=== PATIENT | female | born 2000 | race Caucasian/White ===

== ENCOUNTER 2022-04-03 19:05 | Inpatient (IN) | payer OTHER, BC ==
[~2022-04-03 19:05] MED LIST: Iopamidol-370 76% 500 ML 1 ML ONE
[2022-04-03] MEDS ORDERED: Midazolam HCl 2 mg/2 ml Vial ONE (19:13)
[2022-04-03] MEDS ORDERED: Fentanyl 100 MCG/2 ML VIAL ONE (19:13)
[2022-04-03] MEDS ORDERED: CEFAZOLIN 1 GM VIAL ONE (19:18)
[2022-04-03] MEDS ORDERED: Boostrix 0.5 ML (Tdap) VIAL ONE (19:18)
[2022-04-03 19:23] LABS: #Basophils 0.1 thou/uL (0.0-0.2); #Eosinphils 0.2 thou/uL (0.0-0.7); #Lymphocytes 3.7 thou/uL (1.20-3.40); #Monocytes 0.8 thou/uL (0.11-0.59); #Neutrophils 8.1 thou/uL (1.40-6.50); %Basophils 0.7 % (0.0-1.0); %Eosinophils 1.5 % (0.0-10.0); %Lymphocytes 28.8 % (21.0-51.0); %Monocytes 6.2 % (0.0-10.0); %Neutrophils 62.9 % (42.0-75.0); Hemoglobin 13.4 g/dL (12.0-16.0); Mean Corpuscular HGB CONC 33.4 g/dL (32.0-36.0); Mean Corpuscular Hemoglobin 31.1 pg (27.0-31.0); Mean Corpuscular Volume 93.3 fL (78.0-98.0); Platelet Count 372 thou/uL (130-400); RBC Distribution Width 11.8 % (11.5-14.5); Red Blood Cell (RBC) Count 4.32 mill/uL (4.20-5.40); White Blood Cell (WBC) Count 12.8 thou/uL (4.8-10.8)
[2022-04-03] MEDS ORDERED: Fentanyl CADD 100 ML IV SCH (19:30)
[2022-04-03 19:34] LABS: INR-International Normal Ratio 1.1; Prothrombin Time 13.9 sec (12.0-14.7)
[2022-04-03 19:35] LABS: PTT 31.2 sec (22.9-36.1)
[2022-04-03 19:46] LABS: BHCG - Serum Negative (NEGATIVE); Pregs Control Background? CLEAR/WHITE (CLR/WHITE); Pregs Control Bar Appear? YES (CONTROL BAR)
[2022-04-03 19:50] LABS: ALT (SGPT) 96 U/L (8-55); AST (SGOT) 154 U/L (5-34); Alkaline Phosphatase 67 U/L (40-110); Anion Gap 14 mmol/L (10-20); BUN (Urea Nitrogen) 9 mg/dL (7.0-18.7); Bilirubin, Total 0.4 mg/dL (0.2-1.2); Calc. Creatinine Clearance 0 mL/min (70-130); Calcium 7.7 mg/dL (7.8-10.44); Carbon Dioxide 19 mmol/L (22-29); Chloride 113 mmol/L (98-107); Estimated GFR 127; Globulin 2.5 g/dL (2.4-3.5); Glucose 107 mg/dL (70-105); Potassium 3.4 mmol/L (3.5-5.1); Protein, Total 6.5 g/dL (6.0-8.3); Sodium 143 mmol/L (136-145)
[2022-04-03 19:53] LABS: Actual Bicarbonate (HCO3a) 16.7 mEq/L (22-28); Analyzer IN Cardio ER; Base Excess (BEa) -5.3 mEq/L (-2.0 to +3.0); Calcium, Ionized (arterial) 1.04 mmol/L (1.12-1.30); Carboxyhemoglobin (COHb) 0.3 gm% (0.0-3.0); Hemoglobin (Hb) 12.8 g/dL (12.0-16.0); O2 Tension (PaO2), arterial 251.2 mmHg (80.0-100.0); Potassium - ABG Lab 3.24 mmol/L (3.70-5.30); pH, Arterial 7.46 (7.35-7.45)
[2022-04-03 20:02] LABS: Puncture Site LRA
[2022-04-03 20:03] LABS: Bacteria/HPF None Seen HPF (None Seen); Bilirubin Negative (Negative); Blood, Urine 1+ (Negative); Clarity Clear (Clear); Glucose, Urine (Dipstick) Normal (Negative); Ketone, Urine Negative (Negative); Leukocyte Negative Leu/uL (Negative); Mucous/LPF Rare LPF (<2+); Nitrite Negative (Negative); Protein, Urine (Dipstick) 10 mg/dL (Neg-Trace); Specific Gravity, Urine 1.019 (1.002-1.036); Squamous Epithelial 0-3 HPF (0-3); Urobilinogen Normal mg/dL (Less than 2); WBC/HPF 0-3 HPF (0-3); pH, Urine 6.5 (5.0-9.0)
[2022-04-03 20:10] LABS: Amphetamine Not Detected (NotDetected); Barbiturates Screen Not Detected (NotDetected); Benzodiazepine Screen Not Detected (NotDetected); Cocaine Metabolite Screen Not Detected (NotDetected); Methadone Not Detected (NotDetected); Methamphetamine Not Detected (NotDetected); Opiate Screen Not Detected (NotDetected); Oxycodone Screen Not Detected (NotDetected); Phencyclidine (PCP) Not Detected (NotDetected); THC/Cannabinoid Screen Not Detected (NotDetected); Tricyclic Screen Not Detected (NotDetected)
[2022-04-03 20:13] LABS: Acetaminophen Less than 10.0 mcg/mL (10.0-30.0); Alcohol 178 mg/dL (Less than 10); Salicylate Less than 8.0 mg/dL (15.0-30.0)
[2022-04-03] MEDS ORDERED: Dextrose 50% Abboject 50 ML SYRINGE SLOW IVP PRN (20:14)
[2022-04-03] MEDS ORDERED: hydrALAZINE 20 MG/ML VIAL SLOW IVP PRN (20:14)
[2022-04-03] MEDS ORDERED: Promethazine HCl 25 MG/ML VIAL IM PRN (20:14)
[2022-04-03] MEDS ORDERED: Dextrose 5% in Water 1,000 ML IV PRN (20:14)
[2022-04-03] MEDS ORDERED: Ondansetron PF 4 MG/2 ML Vial IVP PRN (20:14)
[2022-04-03] MEDS ORDERED: Insulin Regular 300 UNITS/3 ML VIAL SC PRN (20:14)
[2022-04-03] MEDS ORDERED: Calcium Chloride 1 GM/10 ML Abboject SYRINGE IVP SCH (20:30)
[2022-04-03] MEDS ORDERED: Calcium Chloride 1 GM/10 ML Abboject SYRINGE ONE (20:31)
[2022-04-03] MEDS ORDERED: Fentanyl CADD 100 ML IV PRN (20:32)
[2022-04-03 20:43] LABS: SARS-CoV-2 NAA Rapid Test Not Detected (NotDetected)
[2022-04-03 21:01] LABS: Phosphorus 2.9 mg/dL (2.3-4.7)
[2022-04-03 21:18] LABS: Troponin I Less than 0.010 ng/mL (< 0.028)
[2022-04-03] MEDS: Sodium Chloride 0.9% 1,000 ML IV SCH (22:06)
[2022-04-03 22:17] VITALS: BMI 22.0
[2022-04-03] MEDS: Famotidine/PF 20 mg/2ml Vial SLOW IVP SCH (22:33)
[2022-04-03 22:43] LABS: Lactic Acid 3.6 mmol/L (0.5-2.2)
[2022-04-03] MEDS: Oxazepam 10 MG CAP PO SCH (23:13)
[2022-04-03] MEDS ORDERED: Acetaminophen 650 MG/20.3 ML UDCUP PER TUBE PRN (23:57)
[2022-04-04] MEDS: Sodium Chloride 0.9% 1,000 ML IV SCH ×4 (04:00→20:38)
[2022-04-04 04:02] LABS: #Lymphocytes 0.9 thou/uL (1.20-3.40); #Monocytes 1.3 thou/uL (0.11-0.59); #Neutrophils 13.1 thou/uL (1.40-6.50); %Eosinophils 0.3 % (0.0-10.0); %Lymphocytes 5.7 % (21.0-51.0); %Monocytes 8.4 % (0.0-10.0); %Neutrophils 85.6 % (42.0-75.0); Hemoglobin 12.7 g/dL (12.0-16.0); Mean Corpuscular HGB CONC 33.7 g/dL (32.0-36.0); Mean Corpuscular Hemoglobin 31.3 pg (27.0-31.0); Mean Corpuscular Volume 92.9 fL (78.0-98.0); Mean Platelet Volume 7.2 fL (7.4-10.4); Platelet Count 258 thou/uL (130-400); RBC Distribution Width 11.6 % (11.5-14.5); Red Blood Cell (RBC) Count 4.06 mill/uL (4.20-5.40); White Blood Cell (WBC) Count 15.3 thou/uL (4.8-10.8)
[2022-04-04 04:26] LABS: Phosphorus 4.6 mg/dL (2.3-4.7)
[2022-04-04 04:27] LABS: Anion Gap 14 mmol/L (10-20); BUN (Urea Nitrogen) 8 mg/dL (7.0-18.7); Calc. Creatinine Clearance 133 mL/min (70-130); Carbon Dioxide 20 mmol/L (22-29); Chloride 110 mmol/L (98-107); Estimated GFR 126; Glucose 114 mg/dL (70-105); Magnesium 1.4 mg/dL (1.6-2.6); Potassium 3.8 mmol/L (3.5-5.1); Sodium 140 mmol/L (136-145)
[2022-04-04] MEDS ORDERED: Sodium Chloride 0.9% 500 ML IV SCH (05:00)
[2022-04-04] MEDS: Oxazepam 10 MG CAP PO SCH ×3 (05:12→18:24)
[2022-04-04] MEDS ORDERED: Magnesium Sulfate In Water 4 GM in Premix Bag 1 BAG IVPB SCH (05:30)
[2022-04-04 07:35] LABS: Actual Bicarbonate (HCO3a) 21.3 mEq/L (22-28); Base Excess (BEa) -2.5 mEq/L (-2.0 to +3.0); CO2 Tension 34.6 mmHg (35.0-45.0); Carboxyhemoglobin (COHb) 1.4 gm% (0.0-3.0); pH, Arterial 7.41 (7.35-7.45)
[2022-04-04 07:40] LABS: O2 Tension (PaO2), arterial 101.3 mmHg (80.0-100.0)
[2022-04-04 07:41] LABS: Puncture Site RRA
[2022-04-04] MEDS: Folic Acid 1 MG TAB PO SCH (08:39)
[2022-04-04] MEDS: Thiamine 100 MG TAB PO SCH (08:39)
[2022-04-04] MEDS: Famotidine/PF 20 mg/2ml Vial SLOW IVP SCH ×2 (08:39→21:20)
[2022-04-04] MEDS ORDERED: Sodium Chloride 0.9% 1,000 ML IV SCH (09:00)
[2022-04-04] MEDS ORDERED: levETIRAcetam 500 MG/5 ML VIAL SLOW IVP SCH ×2 (13:16→21:00)
[2022-04-04] MEDS ORDERED: Calcium Chloride 1 GM/10 ML Abboject SYRINGE IVP SCH (13:30)
[2022-04-05] MEDS: Oxazepam 10 MG CAP PO SCH ×3 (00:09→16:41)
[2022-04-05] MEDS: Sodium Chloride 0.9% 1,000 ML IV SCH ×2 (05:28→11:42)
[2022-04-05 06:25] LABS: #Eosinphils 0.1 thou/uL (0.0-0.7); Mean Corpuscular Volume 94.8 fL (78.0-98.0); RBC Distribution Width 11.6 % (11.5-14.5)
[2022-04-05 06:44] LABS: #Lymphocytes 1.1 thou/uL (1.20-3.40); %Basophils 0.3 % (0.0-1.0); %Lymphocytes 10.8 % (21.0-51.0); %Monocytes 9.9 % (0.0-10.0); Hemoglobin 11.9 g/dL (12.0-16.0); Mean Corpuscular HGB CONC 32.3 g/dL (32.0-36.0); Mean Corpuscular Hemoglobin 30.6 pg (27.0-31.0); Mean Platelet Volume 7.3 fL (7.4-10.4); Platelet Count 187 thou/uL (130-400); Red Blood Cell (RBC) Count 3.89 mill/uL (4.20-5.40); White Blood Cell (WBC) Count 10.3 thou/uL (4.8-10.8)
[2022-04-05 06:51] LABS: Anion Gap 14 mmol/L (10-20); BUN (Urea Nitrogen) 6 mg/dL (7.0-18.7); Calc. Creatinine Clearance 141 mL/min (70-130); Carbon Dioxide 19 mmol/L (22-29); Chloride 109 mmol/L (98-107); Estimated GFR 127; Glucose 95 mg/dL (70-105); Magnesium 1.7 mg/dL (1.6-2.6); Phosphorus 2.2 mg/dL (2.3-4.7); Potassium 3.5 mmol/L (3.5-5.1); Sodium 138 mmol/L (136-145)
[2022-04-05] MEDS ORDERED: Potassium Phosphate 30 MMOL, Magnesium Sulfate 2 GM in Sodium Chloride 0.9% 250 ML 250 ML IVPB SCH (08:15)
[2022-04-05] MEDS: Folic Acid 1 MG TAB PO SCH (08:43)
[2022-04-05] MEDS: levETIRAcetam 500 MG/5 ML VIAL SLOW IVP SCH ×2 (08:44→20:44)
[2022-04-05] MEDS: Thiamine 100 MG TAB PO SCH (08:44)
[2022-04-05] MEDS: Enoxaparin Sodium 40 MG/0.4 ML SYRINGE SC SCH (08:44)
[2022-04-05] MEDS: Famotidine/PF 20 mg/2ml Vial SLOW IVP SCH ×2 (08:44→20:44)
[2022-04-05] MEDS ORDERED: Oxazepam 10 MG CAP PO SCH (15:01)
[2022-04-05] MEDS ORDERED: Acetaminophen 650 MG Suppository PR PRN (20:32)
[2022-04-05] MEDS ORDERED: Oxazepam 10 MG CAP PO PRN (20:33)
[2022-04-06] MEDS: Ketorolac Tromethamine 30 MG/ML VIAL IVP SCH ×4 (00:58→18:50)
[2022-04-06] MEDS ORDERED: Haloperidol Lactate 5 MG/ML VIAL IM SCH (01:30)
[2022-04-06 06:02] LABS: #Eosinphils 0.1 thou/uL (0.0-0.7); #Lymphocytes 1.3 thou/uL (1.20-3.40); #Monocytes 0.8 thou/uL (0.11-0.59); #Neutrophils 5.4 thou/uL (1.40-6.50); %Basophils 0.3 % (0.0-1.0); %Eosinophils 1.4 % (0.0-10.0); %Lymphocytes 16.6 % (21.0-51.0); %Monocytes 10.3 % (0.0-10.0); %Neutrophils 71.5 % (42.0-75.0); Hemoglobin 12.1 g/dL (12.0-16.0); Mean Corpuscular HGB CONC 34.3 g/dL (32.0-36.0); Mean Corpuscular Hemoglobin 32.3 pg (27.0-31.0); Mean Corpuscular Volume 93.9 fL (78.0-98.0); Mean Platelet Volume 7.2 fL (7.4-10.4); Platelet Count 199 thou/uL (130-400); RBC Distribution Width 11.4 % (11.5-14.5); Red Blood Cell (RBC) Count 3.75 mill/uL (4.20-5.40); White Blood Cell (WBC) Count 7.6 thou/uL (4.8-10.8)
[2022-04-06 06:25] LABS: Anion Gap 15 mmol/L (10-20); BUN (Urea Nitrogen) 4 mg/dL (7.0-18.7); Calc. Creatinine Clearance 168 mL/min (70-130); Calcium 8.3 mg/dL (7.8-10.44); Carbon Dioxide 19 mmol/L (22-29); Chloride 113 mmol/L (98-107); Estimated GFR 133; Glucose 86 mg/dL (70-105); Phosphorus 2.5 mg/dL (2.3-4.7); Potassium 3.6 mmol/L (3.5-5.1); Sodium 143 mmol/L (136-145)
[2022-04-06] MEDS: Famotidine/PF 20 mg/2ml Vial SLOW IVP SCH ×2 (09:44→20:38)
[2022-04-06] MEDS: Folic Acid 1 MG TAB PO SCH (09:44)
[2022-04-06] MEDS: Enoxaparin Sodium 40 MG/0.4 ML SYRINGE SC SCH (09:44)
[2022-04-06] MEDS: levETIRAcetam 500 MG/5 ML VIAL SLOW IVP SCH ×2 (09:44→20:38)
[2022-04-06] MEDS: Thiamine 100 MG TAB PO SCH (09:44)
[2022-04-06] MEDS: Sodium Chloride 0.9% 1,000 ML IV SCH ×2 (12:27)
[2022-04-06] MEDS ORDERED: Acetaminophen 325 MG TAB PO PRN (20:31)
[2022-04-07] MEDS: Ketorolac Tromethamine 30 MG/ML VIAL IVP SCH ×2 (00:41→05:41)
[2022-04-07] MEDS ORDERED: Acetaminophen/Codeine 30-300mg Tablet PO SCH (05:30)
[2022-04-07] MEDS: Sodium Chloride 0.9% 1,000 ML IV SCH (05:41)
[2022-04-07] MEDS ORDERED: Oxazepam 10 MG CAP PO SCH ×2 (07:00→14:00)
[2022-04-07] MEDS: levETIRAcetam 500 MG TAB PO SCH ×2 (09:54→20:18)
[2022-04-07] MEDS: Folic Acid 1 MG TAB PO SCH (09:54)
[2022-04-07] MEDS: Enoxaparin Sodium 40 MG/0.4 ML SYRINGE SC SCH (09:54)
[2022-04-07] MEDS: carBAMazepine 200 MG TAB PO SCH ×2 (09:54→18:45)
[2022-04-07] MEDS: Famotidine 20 MG TAB PO SCH ×2 (09:54→20:18)
[2022-04-07] MEDS: Thiamine 100 MG TAB PO SCH (09:54)
[2022-04-07] MEDS: Acetaminophen 325 MG TAB PO SCH ×2 (12:25→18:44)
[2022-04-07] MEDS: Acetaminophen/Codeine 30-300mg Tablet PO PRN ×2 (12:26→18:44)
[2022-04-08] MEDS: Acetaminophen 325 MG TAB PO SCH ×5 (00:03→23:43)
[2022-04-08] MEDS: carBAMazepine 200 MG TAB PO SCH ×2 (08:50→17:30)
[2022-04-08] MEDS: Folic Acid 1 MG TAB PO SCH (08:50)
[2022-04-08] MEDS: Thiamine 100 MG TAB PO SCH (08:50)
[2022-04-08] MEDS: Enoxaparin Sodium 40 MG/0.4 ML SYRINGE SC SCH (08:51)
[2022-04-08] MEDS: levETIRAcetam 500 MG TAB PO SCH ×2 (08:51→20:06)
[2022-04-09] MEDS: Acetaminophen 325 MG TAB PO SCH ×4 (05:00→23:29)
[2022-04-09] MEDS: Thiamine 100 MG TAB PO SCH (08:48)
[2022-04-09] MEDS: carBAMazepine 200 MG TAB PO SCH ×2 (08:48→17:27)
[2022-04-09] MEDS: levETIRAcetam 500 MG TAB PO SCH ×2 (08:48→20:04)
[2022-04-09] MEDS: Folic Acid 1 MG TAB PO SCH (08:48)
[2022-04-09] MEDS: Ibuprofen 800 MG TAB PO PRN ×2 (08:48→23:26)
[2022-04-09] MEDS: Enoxaparin Sodium 40 MG/0.4 ML SYRINGE SC SCH (08:49)
[2022-04-09] MEDS: Acetaminophen/Codeine 30-300mg Tablet PO PRN (20:04)
[2022-04-10] MEDS: Acetaminophen/Codeine 30-300mg Tablet PO PRN ×4 (05:26→23:46)
[2022-04-10] MEDS: Acetaminophen 325 MG TAB PO SCH ×4 (05:26→23:44)
[2022-04-10] MEDS: carBAMazepine 200 MG TAB PO SCH ×2 (09:03→18:10)
[2022-04-10] MEDS: Enoxaparin Sodium 40 MG/0.4 ML SYRINGE SC SCH (09:03)
[2022-04-10] MEDS: levETIRAcetam 500 MG TAB PO SCH ×2 (09:03→21:25)
[2022-04-10] MEDS: Folic Acid 1 MG TAB PO SCH (09:03)
[2022-04-10] MEDS: Thiamine 100 MG TAB PO SCH (09:03)
[2022-04-11] MEDS: Acetaminophen 325 MG TAB PO SCH ×3 (06:48→17:14)
[2022-04-11] MEDS: Folic Acid 1 MG TAB PO SCH (08:35)
[2022-04-11] MEDS: carBAMazepine 200 MG TAB PO SCH ×2 (08:35→17:15)
[2022-04-11] MEDS: Thiamine 100 MG TAB PO SCH (08:36)
[2022-04-11] MEDS: Enoxaparin Sodium 40 MG/0.4 ML SYRINGE SC SCH (08:36)
[2022-04-11] MEDS: levETIRAcetam 500 MG TAB PO SCH ×2 (08:36→20:22)
[2022-04-11 19:40] VITALS: BP 118/66; TEMP 98.4
== END 2022-04-11 20:24 | DRG 963 ==
LOC: EDBD 19:05 → ERS 19:05 → CCU 19:55 → UNDOADMIN 19:55 → SURG B 04-05 23:54
PROVIDERS: ADMIT Physician Assistant Medical; ATTEND Surgery
PROC: 0D9670Z Drainage of Stomach with Drainage Device, Via Natural or Artificial Opening (ICD-10-PCS; principal; 2022-04-03)
PROC: 5A1935Z Respiratory Ventilation, Less than 24 Consecutive Hours (ICD-10-PCS; 2022-04-03)
PROC: 0HQ0XZZ Repair Scalp Skin, External Approach (ICD-10-PCS; 2022-04-03)
DX: S27.321A Contusion of lung, unilateral, initial encounter (principal); J96.00 Acute respiratory failure, unspecified whether with hypoxia or hypercapnia; S32.512A Fracture of superior rim of left pubis, initial encounter for closed fracture; R40.2312 Coma scale, best motor response, none, at arrival to emergency department; R40.2112 Coma scale, eyes open, never, at arrival to emergency department; R40.2212 Coma scale, best verbal response, none, at arrival to emergency department; G93.41 Metabolic encephalopathy; S06.0X9A Concussion with loss of consciousness of unspecified duration, initial encounter; S32.110A Nondisplaced Zone I fracture of sacrum, initial encounter for closed fracture; Z20.822 Contact with and (suspected) exposure to COVID-19; F10.129 Alcohol abuse with intoxication, unspecified; S01.01XA Laceration without foreign body of scalp, initial encounter; S27.331A Laceration of lung, unilateral, initial encounter; G89.29 Other chronic pain; F07.81 Postconcussional syndrome; Y90.6 Blood alcohol level of 120-199 mg/100 ml; V43.54XA Car driver injured in collision with van in traffic accident, initial encounter; E83.39 Other disorders of phosphorus metabolism
CPT/HCPCS: 31500; 36415; 36600; 51702; 70450; 70544; 70551; 71045; 71260; 72125; 74177; 80048; 80053; 80306; 80307; 81003; 81015; 82805; 83605; 83735; 84100; 84146; 84484; 84703; 85025; 85610; 85730; 86850; 86900; 86901; 90471; 90715; 94002; 94003; 95816; 95819; 95957; 96374; 96375; 96376; G0390; J0690; J1630; J1650; J1885; J1953; J2250; J3010; J3475; J3490; J7030; J7050; Q9967; S0028; U0002; U0003; U0005